=== PATIENT | male | born 1950 | race American Indian/Alaskan Native ===

== ENCOUNTER 2016-11-14 09:28 | Inpatient (IN) | payer MEDICARE ==
--- NOTE | 2016-11-14 10:03 | Emergency Department Report ---
ED ENT HPI - General Chief complaint: Dyspnea/Respdistress Stated complaint: SOB Source: patient, EMS Mode of arrival: Ambulatory Limitations: No Limitations - Related Data Home Medications Medication Instructions Recorded Confirmed Last Taken Unobtainable 11/14/16 11/14/16 Unknown Allergies Allergy/AdvReac Type Severity Reaction Status Date / Time No Known Allergies Allergy Unverified 12/02/14 11:00 ED Dental HPI - General Chief complaint: Dyspnea/Respdistress Stated complaint: SOB Source: patient, EMS Mode of arrival: Ambulatory Limitations: No Limitations - Related Data Home Medications Medication Instructions Recorded Confirmed Last Taken Unobtainable 11/14/16 11/14/16 Unknown Allergies Allergy/AdvReac Type Severity Reaction Status Date / Time No Known Allergies Allergy Unverified 12/02/14 11:00 ED Review of Systems ROS: Stated complaint: SOB Other details as noted in HPI ED Past Medical Hx - Past Medical History Previous Medical History?: Yes Hx Hypertension: Yes Additional medical history: Triple bypass at [place] - Surgical History Past Surgical History?: Yes Additional Surgical History: CABG - Social History Smoking Status: Current Every Day Smoker Substance Use Type: Alcohol, Prescribed - Medications Home Medications: Home Medications Medication Instructions Recorded Confirmed Last Taken Type Unobtainable 11/14/16 11/14/16 Unknown History ED Physical Exam - General Limitations: No Limitations ED Course Vital Signs 11/14/16 09:50 Temperature 98.1 F Pulse Rate 86 Respiratory 18 Rate Blood Pressure 151/93 O2 Sat by Pulse 95 Oximetry Critical care attestation.: If time is entered above; I have spent that time in minutes in the direct care of this critically ill patient, excluding procedure time. ED Disposition Condition: Stable
--- NOTE | 2016-11-14 10:09 | Emergency Department Report ---
Chief Complaint: Dyspnea/Respdistress Stated Complaint: SOB Time Seen by Provider: 11/14/16 10:03 - HPI History of Present Illness: Patient is a 64 y.o male with h/o CABG who presents due to SOB x 2 weeks. Patient states that he ran out of his BP medication 2 months ago. Patient denies any chest pain, diaphoresis, vomiting or arm pain. Patient also c/o fatigue - ROS Review of Systems: patient had no chest pain, no nausea, vomiting, diaphoresis of arm pain - Exam Vital Signs: Vital Signs 11/14/16 09:50 Temperature 98.1 F Pulse Rate 86 Respiratory 18 Rate Blood Pressure 151/93 O2 Sat by Pulse 95 Oximetry Physical Exam: patient was in NAD MSE screening note: Focused history and physical exam performed. Due to findings the following was ordered: sob protocols ED Disposition for MSE Condition: Stable
[2016-11-14 10:35] LABS: Basophils % (Auto) 0.5 % (0.0-1.8); Eosinophils % (Auto) 1.2 % (0.0-4.3); Hematocrit 47.6 % (35.5-45.6); Hemoglobin 15.5 gm/dl (11.8-15.2); Mean Corpuscular HGB Conc 33 % (32-34); Mean Corpuscular Hemoglobin 31 pg (28-32); Mean Corpuscular Volume 93 fl (84-94); Platelet Count 179 K/mm3 (140-440); Red Cell Distribution Width 13.2 % (13.2-15.2); White Blood Count 5.4 K/mm3 (4.5-11.0)
[2016-11-14 10:45] LABS: INR 1.11 (0.87-1.13)
[2016-11-14 10:46] LABS: Partial Thromboplastin Time 27.8 Sec. (24.2-36.6)
[2016-11-14 11:08] LABS: Creatine Kinase MB 7.4 ng/mL (0.0-4.0)
[2016-11-14 11:11] LABS: Alanine Aminotransferase 31 units/L (7-56); Albumin 3.6 g/dL (3.9-5); Alkaline Phosphatase 87 units/L (35-129); Anion Gap 17 mmol/L; BUN/Creatinine Ratio 9.09; Bilirubin,Total 0.7 mg/dL (0.1-1.2); Blood Urea Nitrogen 10 mg/dL (9-20); Calcium 8.7 mg/dL (8.4-10.2); Carbon Dioxide 27 mmol/L (22-30); Chloride 101.3 mmol/L (98-107); Glucose 107 mg/dL (75-100); Potassium 4.9 mmol/L (3.6-5.0); Sodium 140 mmol/L (137-145); Total Protein 7.1 g/dL (6.3-8.2)
[2016-11-14 11:12] LABS: Creatine Kinase 189 units/L (55-170)
--- NOTE | 2016-11-14 11:22 | XRay Report ---
CHEST X-RAY, 2 VIEWS History: Dyspnea Findings: Compared to 09/21/10. Moderate cardiomegaly, mild pulmonary venous congestion and small right pleural effusion are identified. No consolidation or pneumothorax. The thoracic tube is intact. CABG changes are noted. Impression: Mild CHF.
[2016-11-14] MEDS ORDERED: LASIX IV ONE (12:18)
--- NOTE | 2016-11-14 12:20 | Emergency Department Report ---
ED Shortness of Breath HPI - General Chief Complaint: Dyspnea/Respdistress Stated Complaint: SOB Time Seen by Provider: 11/14/16 12:09 Source: patient, EMS (ems notes not available at time of chart dictation), RN notes reviewed Mode of arrival: Ambulatory Limitations: No Limitations - History of Present Illness Initial Comments: This is a 66-year-old male, previously unknown to me. Has a past medical history of obesity, hypertension, heart disease status post bypass in 2011. 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 He presents to the ER complaining of shortness of breath. Shortness of breath is new onset over the past few days. It increases with physical exertion, and decreases with rest. He describes orthopnea and difficulty sleeping at night. He denies dietary indiscretions. He admits to medication noncompliance. There is no chest pain. There is no leg pain or leg swelling. No recent trips greater than 4 hours. No recent hospital admissions. Positive cough. No fevers. Dry mucus production. MD Complaint: shortness of breath -: Gradual Consistency: intermittent Improves With: rest Worsens With: lying flat, exertion Associated Symptoms: orhopnia Treatments Prior to Arrival: none - Related Data Home Oxygen Therapy: No Home Medications Medication Instructions Recorded Confirmed Last Taken Unobtainable 11/14/16 11/14/16 Unknown Allergies Allergy/AdvReac Type Severity Reaction Status Date / Time No Known Allergies Allergy Unverified 12/02/14 11:00 ED Review of Systems ROS: Stated complaint: SOB Other details as noted in HPI Constitutional: malaise, weakness. denies: fever ENT: denies: dental pain, epistaxis Respiratory: shortness of breath, SOB with exertion Cardiovascular: dyspnea on exertion Gastrointestinal: denies: abdominal pain, nausea, diarrhea Genitourinary: as per HPI Musculoskeletal: as per HPI Skin: denies: rash, lesions Neurological: weakness ED Past Medical Hx - Past Medical History Previous Medical History?: Yes Hx Hypertension: Yes Additional medical history: Triple bypass at [place] - Surgical History Past Surgical History?: Yes Additional Surgical History: CABG - Social History Smoking Status: Current Every Day Smoker Substance Use Type: Alcohol, Prescribed - Medications Home Medications: Home Medications Medication Instructions Recorded Confirmed Last Taken Type Unobtainable 11/14/16 11/14/16 Unknown History ED Physical Exam - General Limitations: No Limitations General appearance: alert, in no apparent distress, obese - Head Head exam: Present: atraumatic, normocephalic - Eye Eye exam: Present: normal appearance, EOMI. Absent: nystagmus - ENT ENT exam: Present: normal exam, normal orophraynx, mucous membranes moist, normal external ear exam - Neck Neck exam: Present: normal inspection, full ROM. Absent: tenderness, meningismus - Respiratory Respiratory exam: Present: respiratory distress, rales - Cardiovascular Cardiovascular Exam: Present: regular rate, normal rhythm, normal heart sounds. Absent: bradycardia, tachycardia, irregular rhythm, systolic murmur, diastolic murmur, rubs, gallop - GI/Abdominal GI/Abdominal exam: Present: soft, normal bowel sounds. Absent: distended, tenderness, guarding, rebound, rigid, pulsatile mass - Rectal Rectal exam: Present: deferred - Extremities Exam Extremities exam: Present: normal inspection, full ROM, normal capillary refill. Absent: tenderness, pedal edema, joint swelling, calf tenderness - Back Exam Back exam: Present: normal inspection, full ROM. Absent: tenderness, CVA tenderness (R), CVA tenderness (L), muscle spasm, paraspinal tenderness, vertebral tenderness - Neurological Exam Neurological exam: Present: alert, oriented X3, normal gait, other (Extraocular movements intact. Tongue midline. No facial droop. Facial sensation intact to light touch in the V1, V2, V3 distribution bilaterally. 5 and 5 strength in 4 extremities.. Sensation is intact to light touch in 4 extremities.). Absent : motor sensory deficit - Psychiatric Psychiatric exam: Present: normal affect, normal mood - Skin Skin exam: Present: warm, dry, intact, normal color. Absent: rash ED Course Vital Signs 11/14/16 11/14/16 11/14/16 09:50 13:02 13:56 Temperature 98.1 F 98.1 F Pulse Rate 86 85 86 Respiratory 18 16 Rate Blood Pressure 151/93 144/86 Blood Pressure 158/82 [Left] O2 Sat by Pulse 95 99 Oximetry - Reevaluation(s) Reevaluation #1: 11/14/16 12:49 Differential diagnosis: Congestive heart failure bronchitis, pneumonia, obesity hypoventilation syndrome, pulmonary hypertension, multifactorial shortness of breath Assessment and plan: 66-year-old male with shortness of breath, orthopnea, decreased exercise tolerance, no pulmonary embolus or DVT risk factors, low risk by well's criteria. Symptoms most clinically consistent with congestive heart failure. He is noncompliant with medications. Has mildly decompensated heart failure, the son have an outpatient primary care doctor is quite symptomatically exertion. He is not stable for outpatient management given lack of for follow-up, and profound exercise intolerance. He does not require BiPAP therapy or noninvasive ventilation at this time, he will be admitted for diuresis. Case is discussed with the Hospital physician, Dr. Felton, who graciously accepts the patient to his service. He states he will contact cardiology if necessary. ED Medical Decision Making - Lab Data Result diagrams: 11/14/16 10:09 11/14/16 10:09 Vital Signs 11/14/16 09:50 Temperature 98.1 F Pulse Rate 86 Respiratory 18 Rate Blood Pressure 151/93 O2 Sat by Pulse 95 Oximetry Lab Results 11/14/16 11/14/16 11/14/16 Range/Units 10:09 10:09 10:09 WBC 5.4 (4.5-11.0) K/mm3 RBC 5.10 H (3.65-5.03) M/mm3 Hgb 15.5 H (11.8-15.2) gm/dl Hct 47.6 H (35.5-45.6) % MCV 93 (84-94) fl MCH 31 (28-32) pg MCHC 33 (32-34) % RDW 13.2 (13.2-15.2) % Plt Count 179 (140-440) K/mm3 Lymph % (Auto) 25.1 (13.4-35.0) % Brule % (Auto) 6.5 (0.0-7.3) % Eos % (Auto) 1.2 (0.0-4.3) % Baso % (Auto) 0.5 (0.0-1.8) % Lymph # 1.3 (1.2-5.4) K/mm3 Brule # 0.4 (0.0-0.8) K/mm3 Eos # 0.1 (0.0-0.4) K/mm3 Baso # 0.0 (0.0-0.1) K/mm3 Seg Neutrophils % 66.7 (40.0-70.0) % Seg Neutrophils # 3.6 (1.8-7.7) K/mm3 PT (12.2-14.9) Sec. INR (0.87-1.13) APTT (24.2-36.6) Sec. Carbon Dioxide 27 (22-30) mmol/L BUN 10 (9-20) mg/dL Creatinine 1.1 (0.8-1.5) mg/dL Estimated GFR > 60 ml/min BUN/Creatinine Ratio 9.09 % Glucose 107 H (75-100) mg/dL Calcium 8.7 (8.4-10.2) mg/dL Total Bilirubin 0.7 (0.1-1.2) mg/dL AST 21 (5-40) units/L ALT 31 (7-56) units/L Alkaline Phosphatase 87 (35-129) units/L Total Creatine Kinase 189 H (55-170) units/L CK-MB (CK-2) 7.4 H (0.0-4.0) ng/mL CK-MB (CK-2) Rel Index 3.9 (0-4) Troponin T < 0.010 (0.00-0.029) ng/mL NT-Pro-B Natriuret Pep (0-900) pg/mL Total Protein 7.1 (6.3-8.2) g/dL Albumin 3.6 L (3.9-5) g/dL Albumin/Globulin Ratio 1.0 % 11/14/16 11/14/16 Range/Units 10:09 10:09 WBC (4.5-11.0) K/mm3 RBC (3.65-5.03) M/mm3 Hgb (11.8-15.2) gm/dl Hct (35.5-45.6) % MCV (84-94) fl MCH (28-32) pg MCHC (32-34) % RDW (13.2-15.2) % Plt Count (140-440) K/mm3 Lymph % (Auto) (13.4-35.0) % Brule % (Auto) (0.0-7.3) % Eos % (Auto) (0.0-4.3) % Baso % (Auto) (0.0-1.8) % Lymph # (1.2-5.4) K/mm3 Brule # (0.0-0.8) K/mm3 Eos # (0.0-0.4) K/mm3 Baso # (0.0-0.1) K/mm3 Seg Neutrophils % (40.0-70.0) % Seg Neutrophils # (1.8-7.7) K/mm3 PT 14.2 (12.2-14.9) Sec. INR 1.11 (0.87-1.13) APTT 27.8 (24.2-36.6) Sec. Carbon Dioxide (22-30) mmol/L BUN (9-20) mg/dL Creatinine (0.8-1.5) mg/dL Estimated GFR ml/min BUN/Creatinine Ratio % Glucose (75-100) mg/dL Calcium (8.4-10.2) mg/dL Total Bilirubin (0.1-1.2) mg/dL AST (5-40) units/L ALT (7-56) units/L Alkaline Phosphatase (35-129) units/L Total Creatine Kinase (55-170) units/L CK-MB (CK-2) (0.0-4.0) ng/mL CK-MB (CK-2) Rel Index (0-4) Troponin T (0.00-0.029) ng/mL NT-Pro-B Natriuret Pep 3883 H (0-900) pg/mL Total Protein (6.3-8.2) g/dL Albumin (3.9-5) g/dL Albumin/Globulin Ratio % - EKG Data When compared to previous EKG there are: previous EKG unavailable 11/14/16 13:05 Normal sinus, 86 bpm, borderline first-degree AV block, nonspecific interventricular conduction delay, normal axis, multiple T-wave abnormalities, Q waves noted in the inferior leads, abnormal EKG, not morphologically consistent with STEMI. - Radiology Data Radiology results: report reviewed, image reviewed xr chest: chf right sided pleural effusion s/p sternotomy Critical care attestation.: If time is entered above; I have spent that time in minutes in the direct care of this critically ill patient, excluding procedure time. ED Disposition Clinical Impression: CHF (congestive heart failure) Qualifiers: Congestive heart failure type: unspecified congestive heart failure type Congestive heart failure chronicity: acute Qualified Code(s): I50.9 - Heart failure, unspecified Disposition: OP ADMITTED IP TO THIS HOSP Is pt being admited?: Yes Does the pt Need Aspirin: Yes Condition: Good
[2016-11-14] MEDS ORDERED: D50W (25GM) IV PRN (12:46)
[2016-11-14] MEDS ORDERED: ZOFRAN IV PRN (12:46)
[2016-11-14] MEDS ORDERED: TYLENOL PO PRN (12:46)
[2016-11-14] MEDS ORDERED: DULCOLAX PR PRN (12:46)
--- NOTE | 2016-11-14 12:46 | History and Physical Report ---
History of Present Illness Date of examination: 11/14/16 Date of admission: 11/14/16 Chief complaint: Shortness of breath for 3 weeks History of present illness: Patient is 66-year-old with history of hypertension, coronary artery disease, borderline diabetes. He has been noncompliant and has not been to Physician in about 10 years, since he had CABG and is not on any medications. He presents with worsening shortness of breath for 3 weeks. Shortness of breath worse on exertion, and on lying down flat. He denies any chest pain. He is not on any medications. In Emergency department chest x-ray shows pulmonary edema consistent with CHF. He denies any previous history of congestive heart failure. He was given Lasix IV and is being admitted for further management. Past History Past Medical History: arthritis, CAD (s/p CABG), diabetes (borderline Diabetes) , hypertension Past Surgical History: CABG (about 10 yrs ago) Social history: single, smoking ( half pack cigarettes a day), alcohol abuse ( quit alcohol about 10 years ago), full code Family history: cancer Medications and Allergies Allergies Allergy/AdvReac Type Severity Reaction Status Date / Time No Known Allergies Allergy Unverified 12/02/14 11:00 Home Medications Medication Instructions Recorded Confirmed Last Taken Type Unobtainable 11/14/16 11/14/16 Unknown History Review of Systems All systems: negative (no chest pain, no headache, no nausea, no vomiting, no abdominal pain. All other systems reviewed and are negative) Exam - Physical Exam Narrative exam: Gen appearance: not in acute distress, obese HEENT: normocephalic atraumatic, Neck : supple, no JVD Lungs:bilateral basal crackles, no wheezing, Heart : S1 and S2 regular, no murmurs rubs or gallop, midline chest scar from CABG Abdomen: soft nontender, nondistended, normal bowel sounds Extremities: trace bilateral lower extremity edema, no clubbing or cyanosis, Neuro :awake alert oriented 3, no focal signs Psych :appropriate mood - Constitutional Vitals: Temp Pulse Resp BP Pulse Ox 98.1 F 86 18 151/93 95 11/14/16 09:50 11/14/16 09:50 11/14/16 09:50 11/14/16 09:50 11/14/16 09:50 Results - Labs CBC & Chem 7: 11/14/16 10:09 11/14/16 10:09 Labs: Abnormal lab results 11/14/16 11/14/16 11/14/16 Range/Units 10:09 10:09 10:09 RBC 5.10 H (3.65-5.03) M/mm3 Hgb 15.5 H (11.8-15.2) gm/dl Hct 47.6 H (35.5-45.6) % Glucose 107 H (75-100) mg/dL Total Creatine Kinase 189 H (55-170) units/L CK-MB (CK-2) 7.4 H (0.0-4.0) ng/mL NT-Pro-B Natriuret Pep (0-900) pg/mL Albumin 3.6 L (3.9-5) g/dL 11/14/16 Range/Units 10:09 RBC (3.65-5.03) M/mm3 Hgb (11.8-15.2) gm/dl Hct (35.5-45.6) % Glucose (75-100) mg/dL Total Creatine Kinase (55-170) units/L CK-MB (CK-2) (0.0-4.0) ng/mL NT-Pro-B Natriuret Pep 3883 H (0-900) pg/mL Albumin (3.9-5) g/dL Assessment and Plan Acute congestive heart failure. Admit to telemetry. Lasix IV given in emergency department. Continue Lasix 40 mg IV every 12 hours. Add beta anam Coreg 3.125 mg by mouth twice a day. Strict fluid I/O, get Echocardiogram. 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 Coronary artery disease status post CABG. Patient has been noncompliant and has not taken any medicines in over 10 years. Give aspirin daily. check lipid profile. Hypertension. Blood pressure borderline elevated 151/93. Start Coreg. Borderlinre diabetes mellitus. Patient states he was told he has borderline diabetes mellitus about 10 years ago. He is not on any medications. We'll check A1c DVT prophylaxis with heparin subcutaneous every 8 hours. Medical noncompliance. I discussed with him to be more compliant. Obesity. BMI 38.9. I discussed importance of losing weight. Full CODE STATUS
[2016-11-14] MEDS ORDERED: BABY ASPIRIN PO ONE (12:52)
--- NOTE | 2016-11-14 12:53 | Admit Criteria Form ---
Admission Criteria Documentation: HEART FAILURE Clinical Indications for Admission to Inpatient Care (Place 'X' for any and all applicable criteria): Admission is indicated by ANY ONE of the following(1)(2)(3)(4): [ ]I. Severe electrolyte abnormalities requiring inpatient care(9) [ ]II. Hemodynamic instability [X]III. Anasarca [ ]IV. Acute cardiac ischemia causing or associated with failure (Also use Angina or Myocardial Infarction as appropriate) [ ]V. Cardiac arrhythmias of immediate concern [ ]. Precipitating cause for acute decompensation (eg, pneumonia, pulmonary embolism) requires inpatient care [ ]VII. Pulmonary edema that is very severe (eg, mechanical ventilation needed, imminent or likely, need for 100% oxygen to keep oxygen saturation above 90%) [ ]VIII. Inpatient admission required rather than observation care (Also use Heart Failure: Observation Care as appropriate) because of ANY ONE of the following: [ ]a) Pulmonary edema that is severe or worsening as indicated by ALL of the following: [ ]i) New need for oxygen therapy to keep oxygen saturation above 90% (or increased FiO2 need from baseline) [ ]ii) Has not improved sufficiently with emergency department or observation care IV diuretics or other heart failure treatments[C] [ ]b) Cognitive impairment that is severe or persistent [ ]c) Increased creatinine (new on laboratory test) with reduction of more than 50% in estimated glomerular filtration rate from baseline. [ ]d) Acute renal insufficiency (progressively (ongoing) rising creatinine (known from past laboratory test) with reduction of more than 25% in estimated glomerular filtration rate from baseline) [ ]e) Acute peripheral ischemia (eg, pulseless, cool, mottled, or cyanotic extremity) [ ]f) Acute renal failure [ ]g) Supplemental O2 or respiratory treatment for >24 hr that are performable only in acute inpatient setting [ ]h) Pulmonary artery catheter monitoring [ ]i) Other condition, treatment or monitoring requiring inpatient admission [ ]IX. Contraindications and/or Inappropriate clinical situations for Observational Care in patients with Heart Failure, when ANY ONE of the following is required: [ ]a) Patient with High risk of cardiac embolism (e.g, patients with previous cardiac embolism, LVEF < 40%, age >75 and patients with prosthetic valve) 18 [ ]b) Patient with Moderate risk including DM patient, CAD and patient aged 65-75 [ ]c) Patient with any change in cardiac biomarker especially troponin should be managed as high risk in an inpatient setting 19 [ ]d) Physician judgement irrespective of ECG and other diagnostic findings 20 [ ]e) Patients with hyponatremia have high risk for mortality and require more extensive care and length of stay 21 [ ]f) Need for large volume diuresis 21 [ ]g) Presence of renal insufficiency or hypotension limiting speed of diuresis 21 [ ]h) Acute cardiac Ischemia in the elderly 21 [ ]i) Patients with a 30 day risk of mortality based on a multidimensional prognostic index (MPI) [J,]21 [ ]X. General contraindications and/or Inappropriate clinical situations for Observational Care in patients with Heart Failure, when ANY ONE of the following is required: [ ]a) Prediction of prolongation of LOS based on ANY ONE of the following may be considered as a contraindication for observational care 2, 3, 4, 5, 6, 7, 8 , 9, 10, 11 [ ]i) Age > 65 yrs. [ ]ii) Patient arriving by ambulance [ ]iii) Patient with high acuity [ ]iv) Patient requiring vital sign monitoring [ ]v) Patient on IV medication [ ]b) Systolic blood pressures 180mmHg 3,12 [ ]c) Patient with altered mental status including delirium and other alteration of consciousness, (3) [ ]d) Patient whose discharge disposition will be to a [facility] home or rehabilitation home should not be managed in Emergency Department Observation Unit. CMS rule requires 3 days hospital stay before such placement.3,13 [ ]e) Patient with failure to thrive due to broad array of etiologies 3,16,17 [ ]f) Inability to ambulate 3,14 Extended stay beyond goal length of stay may be needed for(1)(3)(21)(25): [ ]a) Cardiac ischemia, confirmed or suspected as precipitant [ ]b) Cardiogenic shock or refractory pulmonary edema [ ]c) Acute kidney injury or renal failure [ ]d) Respiratory failure (eg, need for noninvasive or invasive mechanical ventilation) (23) [ ]e) Concomitant pneumonia or significant electrolyte abnormality (eg, severe hyponatremia) [ ]f) Newly diagnosed (new onset) atrial fibrillation [ ]g) Stage IV chronic kidney disease (estimated glomerular filtration rate of less than 30 mL/min/1.73m2 (0.50 mL/sec/1.73m2), and not previously on chronic dialysis The original [facility] content created by [facility] has been revised. The portions of the content which have been revised are identified through the use of italic text or in bold, and [facility] has neither reviewed nor approved the modified material. All other unmodified content is copyright [facility]. Please see references footnoted in the original [facility] edition 2016 Admission Criteria Met: Yes
[2016-11-14] MEDS: COREG PO SCH ×2 (13:56→21:46)
[2016-11-14] MEDS: HEPARIN SUB-Q SCH ×2 (15:45→21:47)
[2016-11-14 16:02] LABS: Bilirubin,Urine NEG (Negative); Blood,Urine NEG (Negative); Ketones,Urine NEG (Negative); Leukocyte Esterase,Urine NEG (Negative); Mucus,Urine FEW /HPF; Nitrite,Urine NEG (Negative)
[2016-11-14] MEDS: LASIX IV SCH (20:23)
[2016-11-15 06:41] LABS: Basophils % (Auto) 0.5 % (0.0-1.8); Eosinophils % (Auto) 2.6 % (0.0-4.3); Hematocrit 46.5 % (35.5-45.6); Hemoglobin 15.1 gm/dl (11.8-15.2); Mean Corpuscular HGB Conc 32 % (32-34); Mean Corpuscular Hemoglobin 30 pg (28-32); Mean Corpuscular Volume 93 fl (84-94); Platelet Count 173 K/mm3 (140-440); Red Cell Distribution Width 13.3 % (13.2-15.2); White Blood Count 5.1 K/mm3 (4.5-11.0)
[2016-11-15] MEDS: HEPARIN SUB-Q SCH ×3 (06:41→21:14)
[2016-11-15] MEDS: LASIX IV SCH ×2 (06:41→17:12)
[2016-11-15 06:52] LABS: Anion Gap 15 mmol/L; BUN/Creatinine Ratio 12.72; Blood Urea Nitrogen 14 mg/dL (9-20); Calcium 8.7 mg/dL (8.4-10.2); Carbon Dioxide 26 mmol/L (22-30); Glucose 104 mg/dL (75-100); Potassium 4.2 mmol/L (3.6-5.0); Sodium 135 mmol/L (137-145)
[2016-11-15] MEDS ORDERED: ECOTRIN PO SCH (10:00)
[2016-11-15] MEDS: COREG PO SCH ×2 (11:37→21:13)
[2016-11-15] MEDS ORDERED: PNEUMOVAX 23 IM ONE (12:00)
--- NOTE | 2016-11-15 13:37 | Consultation ---
History of Present Illness Consult date: 11/15/16 Consult reason: congestive heart failure History of present illness: The patient is a 66-year-old man with an extensive cardiac history. More than 10 years ago, he underwent three-way coronary artery bypass surgery at [place]. He has continued to smoke cigarettes over the years, has not maintained regular cardiology follow-up but has had no significant interval cardiac evaluation. Comorbidities include chronic hypertension, for which he is also not compliant with medical therapy, not taking blood pressure medication for over 2 months. For several weeks now, he has complained of increasing shortness of breath and cough, he thought he had the flu and that last week was administered with the flu and Pneumovax shots. His symptoms however continued to he presented to the emergency room where a chest x-ray was consistent with interstitial edema and congestive heart failure. Cardiac consultation is requested for further cardiac evaluation. The patient denies chest pain, denies palpitations, but he has significant orthopnea and PND, and mild lower extremity edema. ECG is normal sinus rhythm, left ventricular hypertrophy and repolarization abnormalities of LVH. Initial cardiac enzymes are normal. Past History Past Medical History: arthritis, CAD (s/p CABG), diabetes (borderline Diabetes) , hypertension Past Surgical History: CABG (about 10 yrs ago) Social history: single, smoking ( half pack cigarettes a day), alcohol abuse ( quit alcohol about 10 years ago), full code Family history: cancer Medications and Allergies Allergies Allergy/AdvReac Type Severity Reaction Status Date / Time No Known Allergies Allergy Unverified 12/02/14 11:00 Home Medications Medication Instructions Recorded Confirmed Last Taken Type Aspirin [Aspirin TAB] 325 mg PO DAILY 11/15/16 11/15/16 Unknown History Active Meds: Active Medications Acetaminophen (Tylenol) 650 mg PO Q4H PRN PRN Reason: Pain MILD(1-3)/Fever >100.5/[place] Aspirin (Ecotrin) 325 mg PO QDAY [facility] Last Admin: 11/15/16 11:37 Dose: 325 mg Bisacodyl (Dulcolax) 10 mg CO QDAY PRN PRN Reason: Constipation unrelieved by MOM Carvedilol (Coreg) 3.125 mg PO BID [facility] Last Admin: 11/15/16 11:37 Dose: 3.125 mg Dextrose (D50w (25gm)) 50 ml IV PRN PRN PRN Reason: Hypoglycemia Furosemide (Lasix) 40 mg IV BID@0600,1800 [facility] Last Admin: 11/15/16 06:41 Dose: 40 mg Heparin Sodium (Porcine) (Heparin) 5,000 unit SUB-Q Q8HR [facility] Last Admin: 11/15/16 06:41 Dose: 5,000 unit Ondansetron HCl (Zofran) 4 mg IV Q6H PRN PRN Reason: nausea or vomiting Review of Systems Cardiovascular: orthopnea, edema, shortness of breath, no chest pain, no palpitations, no rapid/irregular heart beat, no syncope, no lightheadedness Physical Examination Vital Signs Temp Pulse Resp BP Pulse Ox 98.1 F 86 18 151/93 95 11/14/16 09:50 11/14/16 09:50 11/14/16 09:50 11/14/16 09:50 11/14/16 09:50 General appearance: mild distress HEENT: Positive: PERRL Neck: Positive: neck supple Cardiac: Positive: Reg Rate and Rhythm Lungs: Positive: Decreased Breath Sounds, Rhonchi Neuro: Positive: Grossly Intact Abdomen: Positive: Soft Male genitourinary: Positive: deferred Skin: Positive: Clear Extremities: Present: +1 Edema Results 11/15/16 05:59 11/15/16 05:59 CBC 11/15/16 Range/Units 05:59 WBC 5.1 (4.5-11.0) K/mm3 RBC 5.00 (3.65-5.03) M/mm3 Hgb 15.1 (11.8-15.2) gm/dl Hct 46.5 H (35.5-45.6) % Plt Count 173 (140-440) K/mm3 Lymph # 1.8 (1.2-5.4) K/mm3 [place] # 0.5 (0.0-0.8) K/mm3 Eos # 0.1 (0.0-0.4) K/mm3 Baso # 0.0 (0.0-0.1) K/mm3 Comprehensive Metabolic Panel 11/15/16 Range/Units 05:59 Sodium 135 L (137-145) mmol/L Potassium 4.2 (3.6-5.0) mmol/L Chloride 98.0 (98-107) mmol/L Carbon Dioxide 26 (22-30) mmol/L BUN 14 (9-20) mg/dL Creatinine 1.1 (0.8-1.5) mg/dL Glucose 104 H (75-100) mg/dL Calcium 8.7 (8.4-10.2) mg/dL EKG interpretations - Telemetry EKG Rhythm: Sinus Rhythm Assessment and Plan - Patient Problems (1) CHF (congestive heart failure) Current Visit: Yes Status: Acute Qualifiers: Congestive heart failure type: unspecified congestive heart failure type Congestive heart failure chronicity: acute Qualified Code(s): I50.9 - Heart failure, unspecified Plan to address problem: Patient with a history of coronary artery disease, and more than 10 year old grafts, continued tobacco abuse, presents with symptoms of decompensated heart failure. Recommendations: We will aggressively treat heart failure with diuretics, oral antiplatelet therapy, nitrates, beta blockers and antihypertensive management. A right and left heart catheterization, for further assessment of his heart failure and the progression of his coronary artery disease.
[2016-11-15] MEDS ORDERED: ZESTRIL PO SCH (14:00)
[2016-11-15] MEDS: FLUARIX QUAD 2016-2017(36 MOS+) IM ONE ×2 (14:21→14:25)
[2016-11-15] MEDS: NITRO-BID 2% TP SCH ×2 (14:21→17:12)
--- NOTE | 2016-11-15 14:49 | Echocardiography Report ---
Transthoracic Echocardiogram Indication: SOB BP: 160/80 HR: 78 Conclusions *1. Dilated cardiomyopathy, EF 15-20%. *2. Dilated LA. *3. Mild-moderate MR. Findings Procedure Info: The study quality is fair. Left Ventricle: The left ventricular size is moderate to severely dilated. Mild to moderate concentric left ventricular hypertrophy is observed. There is evidence of a dilated cardiomyopathy. Global left ventricular systolic function is severely decreased. The estimated ejection fraction is 15-20%. Post surgical hypokinesis of the interventricular septum is observed consistent with coronary artery bypass. Left Atrium: The left atrium is severely dilated. Right Ventricle: The right ventricle is slightly dilated. The right ventricular global systolic function is mildly reduced. Right Atrium: The right atrium is mildly dilated. Aortic Valve: The aortic valve is trileaflet. The aortic valve leaflets are mildly thickened. There is no evidence of aortic regurgitation. There is no evidence of aortic stenosis. Mitral Valve: The mitral valve leaflets appear myxomatous. There is mitral annular calcification. The mitral valve leaflets are mildly thickened. There is mild to moderate mitral regurgitation. There is no evidence of mitral stenosis. Tricuspid Valve: The tricuspid valve is not well visualized. There is mild tricuspid regurgitation. No pulmonary hypertension is noted. There is no tricuspid stenosis. Pulmonic Valve: The pulmonic valve is not well visualized. There is mild to moderate pulmonic regurgitation. There is no pulmonic stenosis. Pericardium: There is no pericardial effusion. No pleural effusion is present. Aorta: There is no dilatation of the aortic root. Venous: The inferior vena cava appears normal in size. There is a greater than 50% respiratory change in the inferior vena cava dimension. Measurements Chambers 2D Name Value Normal Range LVPWd 1.3 cm - LVIDd 5.53 cm - LVIDs 5.1 cm - LVIDd (2D) 5.87 cm (3.7 - 5.6) LVIDs (2D) 5.35 cm (2 - 3.8) LV FS (Teichholz) (2D) 8.86 % - LV FS (cube) (2D) 8.86 % - LV EF (2D) 20 % - EF Teichholz (2D) 19.3 % - LA dimension 4.4 cm - Ao root diameter (2D) 3.6 cm (2 - 3.7) LA dimension (AP) 2D 5 cm (1.9 - 4) LA:Ao ratio (2D) 1.39 ratio - Volumes/Mass Name Value Normal Range LA ESV SP 4CH (MOD) 51 ml - LV EDV SP 4CH (MOD) 206 ml - LV ESV SP 4CH (MOD) 139 ml - EF SP 4CH (MOD) 33 % - Diastolic/Systolic Function Name Value Normal Range MV E-wave Vmax 1.1 m/sec - MV deceleration time 174 msec - MV A-wave Vmax 0.5 m/sec - MV E:A ratio 2.2 ratio - LV septal e' Vmax 0.04 m/sec - LV lateral e' Vmax 0.04 m/sec - LV E:e' septal ratio 25.1 ratio - LV E:e' lateral ratio 27.5 ratio - Aortic Valve Name Value Normal Range AV VTI 14.6 cm - AV mean gradient 2 mmHg - LVOT diameter 2.3 cm - LVOT VTI 13.2 cm - LVOT mean gradient 1 mmHg - SV LVOT 55 ml - MYLA (continuity VTI) 3.75 cm2 - Mitral Valve Name Value Normal Range MV Vmax 0.77 m/sec - MV VTI 13.3 cm - MV peak gradient 2 mmHg - MV mean gradient 1 mmHg - MVA (continuity VTI) 4.12 cm2 - Tricuspid Valve Name Value Normal Range TR Vmax 1.81 m/sec - TR peak gradient 13 mmHg - Pulmonic Valve/Qp:Qs Name Value Normal Range PV Vmax 0.62 m/sec - PV peak gradient 2 mmHg - MN end-diastolic Vmax 1.63 m/sec - PV acceleration time 140 msec -
--- NOTE | 2016-11-15 15:42 | Progress Note ---
Assessment and Plan Assessment and plan: Acute congestive heart failure. Continue Lasix 40 mg IV every 12 hours, Coreg po. Echo cardiogram shows EF 15-20%. He was evaluated by cardiology. For cardiac cath in the morning. Coronary artery disease status post CABG. Patient has been noncompliant and has not taken any medicines in over 10 years. Give aspirin daily. check lipid profile. Hypertension. Blood pressure improved, most recent 136/70. Borderlinre diabetes mellitus. Patient states he was told he has borderline diabetes mellitus about 10 years ago. He is not on any medications. A1C 6.5. DVT prophylaxis with heparin subcutaneous every 8 hours. Medical noncompliance. I discussed with him to be more compliant. Obesity. BMI 38.9. I discussed importance of losing weight. Full CODE STATUS History Interval history: feels better, Less shortness of breath, No chest pain Leg edema still present Hospitalist Physical - Physical exam Narrative exam: Gen appearance: not in acute distress, obese HEENT: normocephalic atraumatic, Neck : supple, no JVD Lungs:bilateral basal crackles, no wheezing, Heart : S1 and S2 regular, no murmurs rubs or gallop, midline chest scar from CABG Abdomen: soft nontender, nondistended, normal bowel sounds Extremities: trace bilateral lower extremity edema, no clubbing or cyanosis, Neuro :awake alert oriented 3, no focal signs Psych :appropriate mood - Constitutional Vitals: Temp Pulse Resp BP Pulse Ox 98.4 F 84 20 136/70 96 11/15/16 13:18 11/15/16 13:18 11/15/16 13:18 11/15/16 13:18 11/15/16 13:18 General appearance: Present: mild distress Results - Labs CBC & Chem 7: 11/15/16 05:59 11/15/16 05:59 Labs: Laboratory Last Values WBC 5.1 K/mm3 (4.5-11.0) 11/15/16 05:59 RBC 5.00 M/mm3 (3.65-5.03) 11/15/16 05:59 Hgb 15.1 gm/dl (11.8-15.2) 11/15/16 05:59 Hct 46.5 % (35.5-45.6) H 11/15/16 05:59 MCV 93 fl (84-94) 11/15/16 05:59 MCH 30 pg (28-32) 11/15/16 05:59 MCHC 32 % (32-34) 11/15/16 05:59 RDW 13.3 % (13.2-15.2) 11/15/16 05:59 Plt Count 173 K/mm3 (140-440) 11/15/16 05:59 Lymph % (Auto) 34.2 % (13.4-35.0) 11/15/16 05:59 [place] % (Auto) 9.1 % (0.0-7.3) H 11/15/16 05:59 Eos % (Auto) 2.6 % (0.0-4.3) 11/15/16 05:59 Baso % (Auto) 0.5 % (0.0-1.8) 11/15/16 05:59 Lymph # 1.8 K/mm3 (1.2-5.4) 11/15/16 05:59 [place] # 0.5 K/mm3 (0.0-0.8) 11/15/16 05:59 Eos # 0.1 K/mm3 (0.0-0.4) 11/15/16 05:59 Baso # 0.0 K/mm3 (0.0-0.1) 11/15/16 05:59 Seg Neutrophils % 53.6 % (40.0-70.0) 11/15/16 05:59 Seg Neutrophils # 2.7 K/mm3 (1.8-7.7) 11/15/16 05:59 PT 14.2 Sec. (12.2-14.9) 11/14/16 10:09 INR 1.11 (0.87-1.13) 11/14/16 10:09 APTT 27.8 Sec. (24.2-36.6) 11/14/16 10:09 Sodium 135 mmol/L (137-145) L 11/15/16 05:59 Potassium 4.2 mmol/L (3.6-5.0) 11/15/16 05:59 Chloride 98.0 mmol/L (98-107) 11/15/16 05:59 Carbon Dioxide 26 mmol/L (22-30) 11/15/16 05:59 Anion Gap 15 mmol/L 11/15/16 05:59 BUN 14 mg/dL (9-20) 11/15/16 05:59 Creatinine 1.1 mg/dL (0.8-1.5) 11/15/16 05:59 Estimated GFR > 60 ml/min 11/15/16 05:59 BUN/Creatinine Ratio 12.72 % 11/15/16 05:59 Glucose 104 mg/dL (75-100) H 11/15/16 05:59 POC Glucose 97 (70-105) 11/15/16 12:13 Hemoglobin A1c 6.5 % (4-6) H 11/14/16 10:09 Calcium 8.7 mg/dL (8.4-10.2) 11/15/16 05:59 Total Bilirubin 0.7 mg/dL (0.1-1.2) 11/14/16 10:09 AST 21 units/L (5-40) 11/14/16 10:09 ALT 31 units/L (7-56) 11/14/16 10:09 Alkaline Phosphatase 87 units/L (35-129) 11/14/16 10:09 Total Creatine Kinase 189 units/L (55-170) H 11/14/16 10:09 CK-MB (CK-2) 7.4 ng/mL (0.0-4.0) H 11/14/16 10:09 CK-MB (CK-2) Rel Index 3.9 (0-4) 11/14/16 10:09 Troponin T < 0.010 ng/mL (0.00-0.029) 11/14/16 13:23 NT-Pro-B Natriuret Pep 3883 pg/mL (0-900) H 11/14/16 10:09 Total Protein 7.1 g/dL (6.3-8.2) 11/14/16 10:09 Albumin 3.6 g/dL (3.9-5) L 11/14/16 10:09 Albumin/Globulin Ratio 1.0 % 11/14/16 10:09 Urine Color Yellow (Yellow) 11/14/16 14:30 Urine Turbidity Clear (Clear) 11/14/16 14:30 Urine pH 7.0 (5.0-7.0) 11/14/16 14:30 Ur Specific [place] 1.010 (1.003-1.030) 11/14/16 14:30 Urine Protein 30 mg/dl mg/dL (Negative) 11/14/16 14:30 Urine Glucose (UA) Neg mg/dL (Negative) 11/14/16 14:30 Urine Ketones Neg mg/dL (Negative) 11/14/16 14:30 Urine Blood Neg (Negative) 11/14/16 14:30 Urine Nitrite Neg (Negative) 11/14/16 14:30 Urine Bilirubin Neg (Negative) 11/14/16 14:30 Urine Urobilinogen 2.0 mg/dL (<2.0) 11/14/16 14:30 Ur Leukocyte Esterase Neg (Negative) 11/14/16 14:30 Urine WBC (Auto) 2.0 /HPF (0.0-6.0) 11/14/16 14:30 Urine RBC (Auto) 4.0 /HPF (0.0-6.0) 11/14/16 14:30 Urine Mucus Few /HPF 11/14/16 14:30
[2016-11-15] MEDS: ZOCOR PO SCH (21:13)
[2016-11-16] MEDS ORDERED: ASPIRIN PO ONE (06:00)
[2016-11-16] MEDS ORDERED: ZESTRIL PO ONE (06:00)
[2016-11-16] MEDS ORDERED: COREG PO ONE (06:00)
[2016-11-16] MEDS ORDERED: HEPARIN/NS 5000 UNIT/500ML(CATH LAB) 1,000 ML IR ONE (10:02)
[2016-11-16] MEDS ORDERED: VERSED ONE ×2 (10:03→10:10)
[2016-11-16] MEDS ORDERED: SUBLIMAZE ONE ×2 (10:03→10:10)
[2016-11-16] MEDS ORDERED: XYLOCAINE 2% INFILTRATI ONE (10:03)
[2016-11-16] MEDS ORDERED: NACL 0.9% 500 ML 500 ML ONE (10:03)
[2016-11-16] MEDS ORDERED: NITROGLYCERIN SYRINGE 0 ML ONE (10:10)
[2016-11-16] MEDS: LASIX IV SCH ×2 (13:20→17:15)
[2016-11-16] MEDS: HEPARIN SUB-Q SCH ×2 (13:20→21:28)
[2016-11-16] MEDS: NITRO-BID 2% TP SCH ×2 (13:21→17:15)
--- NOTE | 2016-11-16 13:40 | Cardiac Catherization Report ---
LEFT AND RIGHT HEART CATHETERIZATION INDICATION: Congestive heart failure, cardiomyopathy. ORDERING PHYSICIAN: Jing Deal MD PROCEDURES PERFORMED: 1. Selective left and right coronary angiography. 2. Left ventriculography. 3. Selective angiography of the saphenous vein graft to the obtuse marginal, selective angiography of the saphenous vein graft to the right coronary artery, and selective angiography of the HUERTA graft to the LAD. 4. Right heart catheterization with hemodynamic measurement and oxygen saturation run. DESCRIPTION OF PROCEDURE: After obtaining written consent, the patient was draped using sterile technique. A 2% lidocaine was injected into the right groin. A 5-Tanzanian vascular sheath was inserted into the right superficial femoral artery using micropuncture technique. An 8-[place]anz[place] vascular sheath was inserted into the right superficial femoral vein using a micropuncture technique. A 5-Tanz[place] JL4 catheter was used to selectively engage the left coronary artery. A 5-[place] JR4 catheter was used to selectively engage the right coronary artery. A 5-[place]anz[place] JR4 catheter was used to selectively engage the saphenous vein graft to the obtuse marginal, saphenous vein graft to the right coronary artery, and HUERTA graft to the LAD. A 5-[place]anzanian pigtail catheter was used to perform the left ventriculogram. A 7-Tanzanian Derby-Dorothy catheter was used to measure right-sided pressures and perform oxygen saturation run. No complications occurred during the procedure. Hemostasis was achieved at the end of the procedure using manual pressure. ESTIMATED BLOOD LOSS: Minimal. SPECIMEN REMOVED: None FINDINGS: Hemodynamics: 1. The aortic pressure is 157/93, LV systolic pressure is 159 mmHg. Left ventricular end-diastolic pressure was measured at 34 mmHg. There was no significant gradient noted across the left ventricular outflow tract. 2. The mean right arterial pressure is 14 mmHg. 3. The right ventricular systolic pressure is 52 mmHg with a right ventricular end-diastolic pressure of 17 mmHg. 4. The mean pulmonary artery pressure was 37 mmHg with the pulmonary artery systolic pressure of 56 and the diastolic pressure of 21 mmHg. The transpulmonary gradient was measured at 6 mmHg. 5. The mean pulmonary capillary wedge pressure was 31 mmHg. The pulmonary artery saturation was 62%, right ventricular saturation was 61%, right atrial saturation was 64%, superior vena cava saturation was 63%, and aortic saturation was 92%. CARDIAC STRUCTURES: The left ventricular cavity is dilated with severe global left ventricular hypokinesis and left ventricular ejection fraction estimated at 15%. CORONARY ANATOMY: 1. There is a 99% distal occlusion of the left main. 2. There is 100% occlusion of the proximal LAD. 3. There is 100% occlusion of the proximal right coronary artery. 4. The right coronary artery could not be engaged and is believed to be 100% occluded at the ostium. 5. The saphenous vein graft to the distal right coronary artery is patent with good distal vessel run-off. 6. The saphenous vein graft to the obtuse marginal is patent with good distal vessel run-off. 7. The HUERTA graft to the LAD is patent with good distal vessel run-off. IMPRESSION: 1. 100% occlusion of the [place] coronary arteries. 2. Patent saphenous vein graft to obtuse marginal, patent saphenous vein graft to the right coronary artery, and patent HUERTA graft to the LAD. 3. Severe global left ventricular hypokinesis with an ejection fraction estimated at 15%. 4. Elevated left and right-sided filling pressures with evidence of moderate pulmonary venous hypertension. 5. No evidence of an intracardiac shunt. RECOMMENDATIONS: Continue medical therapy with diuresis and afterload reduction. JOB# [id number] GISEL/DREA
--- NOTE | 2016-11-16 14:24 | Progress Note ---
Assessment and Plan Acute systolic heart failure EF 15% on echo this admission Hx of CAD with remote CABG Hypertension Noncompliant with medications R /LHC findings: 1. Patent SVG to obtuse marginal 2. Patent SVG to right coronary artery 3. Patent HUERTA graft to LAD 4. Ejection fraction 15% 5. Elevated right and left filling pressures with evidence of moderate pulmonary HTN. Recommend: Continued medical therapy with afterload reduction and diuretics for systolic heart failure. Subjective Date of service: 11/16/16 Interval history: Right and left cardiac cath done today. Objective Vital Signs Temp Pulse Pulse Pulse Resp BP BP 11/15/16 23:56 98.2 F 82 18 118/64 11/15/16 22:00 80 11/15/16 21:13 78 134/77 11/15/16 20:21 11/15/16 19:56 97.5 F L 81 20 134/77 11/15/16 15:58 98.3 F 84 22 BP Pulse Ox 11/15/16 23:56 100 11/15/16 22:00 11/15/16 21:13 11/15/16 20:21 94 11/15/16 19:56 97 11/15/16 15:58 125/66 - Physical Examination HEENT: Positive: PERRL Neck: Positive: neck supple Neuro: Positive: Grossly Intact Abdomen: Positive: Soft Skin: Positive: Clear Extremities: Present: +1 Edema
[2016-11-16 14:50] LABS: BUN/Creatinine Ratio 13.07; Blood Urea Nitrogen 17 mg/dL (9-20); Calcium 8.9 mg/dL (8.4-10.2); Carbon Dioxide 30 mmol/L (22-30); Chloride 99.4 mmol/L (98-107); Glucose 100 mg/dL (75-100); INR 1.06 (0.87-1.13); Potassium 4.3 mmol/L (3.6-5.0); Sodium 139 mmol/L (137-145)
[2016-11-16 15:30] LABS: Anion Gap 14 mmol/L
--- NOTE | 2016-11-16 18:18 | Progress Note ---
Assessment and Plan Assessment and plan: Acute congestive heart failure. Continue Lasix 40 mg IV every 12 hours, Coreg po. Echo cardiogram shows EF 15-20%. Cardiology following . Cardiac cath shows patent grafts. Continue Medical management as recommended by cardiology. Likely discharge home tomorrow. Coronary artery disease status post CABG. Patient has been noncompliant and has not taken any medicines in over 10 years. Hypertension. Blood pressure improved, most recent 128/75. Borderlinre diabetes mellitus. Patient states he was told he has borderline diabetes mellitus about 10 years ago. He is not on any medications. A1C 6.5. DVT prophylaxis with heparin subcutaneous every 8 hours. Medical noncompliance. I discussed with him to be more compliant. Obesity. BMI 38.9. I discussed importance of losing weight. Full CODE STATUS History Interval history: feels better, Less shortness of breath, No chest pain less leg edema cardiac cath today Hospitalist Physical - Physical exam Narrative exam: Gen appearance: not in acute distress, obese HEENT: normocephalic atraumatic, Neck : supple, no JVD Lungs:bilateral basal crackles, no wheezing, Heart : S1 and S2 regular, no murmurs rubs or gallop, midline chest scar from CABG Abdomen: soft nontender, nondistended, normal bowel sounds Extremities: trace bilateral lower extremity edema, no clubbing or cyanosis, Neuro :awake alert oriented 3, no focal signs Psych :appropriate mood - Constitutional Vitals: Temp Pulse Resp BP Pulse Ox 98.2 F 82 18 118/64 100 11/15/16 23:56 11/15/16 23:56 11/15/16 23:56 11/15/16 23:56 11/15/16 23:56 General appearance: Present: mild distress Results - Labs CBC & Chem 7: 11/15/16 05:59 11/16/16 04:00 Labs: Laboratory Last Values WBC 5.1 K/mm3 (4.5-11.0) 11/15/16 05:59 RBC 5.00 M/mm3 (3.65-5.03) 11/15/16 05:59 Hgb 15.1 gm/dl (11.8-15.2) 11/15/16 05:59 Hct 46.5 % (35.5-45.6) H 11/15/16 05:59 MCV 93 fl (84-94) 11/15/16 05:59 MCH 30 pg (28-32) 11/15/16 05:59 MCHC 32 % (32-34) 11/15/16 05:59 RDW 13.3 % (13.2-15.2) 11/15/16 05:59 Plt Count 173 K/mm3 (140-440) 11/15/16 05:59 Lymph % (Auto) 34.2 % (13.4-35.0) 11/15/16 05:59 [place] % (Auto) 9.1 % (0.0-7.3) H 11/15/16 05:59 Eos % (Auto) 2.6 % (0.0-4.3) 11/15/16 05:59 Baso % (Auto) 0.5 % (0.0-1.8) 11/15/16 05:59 Lymph # 1.8 K/mm3 (1.2-5.4) 11/15/16 05:59 [place] # 0.5 K/mm3 (0.0-0.8) 11/15/16 05:59 Eos # 0.1 K/mm3 (0.0-0.4) 11/15/16 05:59 Baso # 0.0 K/mm3 (0.0-0.1) 11/15/16 05:59 Seg Neutrophils % 53.6 % (40.0-70.0) 11/15/16 05:59 Seg Neutrophils # 2.7 K/mm3 (1.8-7.7) 11/15/16 05:59 PT 13.7 Sec. (12.2-14.9) 11/16/16 04:00 INR 1.06 (0.87-1.13) 11/16/16 04:00 APTT 27.8 Sec. (24.2-36.6) 11/14/16 10:09 Sodium 139 mmol/L (137-145) 11/16/16 04:00 Potassium 4.3 mmol/L (3.6-5.0) 11/16/16 04:00 Chloride 99.4 mmol/L (98-107) 11/16/16 04:00 Carbon Dioxide 30 mmol/L (22-30) 11/16/16 04:00 Anion Gap 14 mmol/L 11/16/16 04:00 BUN 17 mg/dL (9-20) 11/16/16 04:00 Creatinine 1.3 mg/dL (0.8-1.5) 11/16/16 04:00 Estimated GFR > 60 ml/min 11/16/16 04:00 BUN/Creatinine Ratio 13.07 % 11/16/16 04:00 Glucose 100 mg/dL (75-100) 11/16/16 04:00 POC Glucose 113 (70-105) H 11/16/16 12:38 Hemoglobin A1c 6.5 % (4-6) H 11/14/16 10:09 Calcium 8.9 mg/dL (8.4-10.2) 11/16/16 04:00 Total Bilirubin 0.7 mg/dL (0.1-1.2) 11/14/16 10:09 AST 21 units/L (5-40) 11/14/16 10:09 ALT 31 units/L (7-56) 11/14/16 10:09 Alkaline Phosphatase 87 units/L (35-129) 11/14/16 10:09 Total Creatine Kinase 189 units/L (55-170) H 11/14/16 10:09 CK-MB (CK-2) 7.4 ng/mL (0.0-4.0) H 11/14/16 10:09 CK-MB (CK-2) Rel Index 3.9 (0-4) 11/14/16 10:09 Troponin T < 0.010 ng/mL (0.00-0.029) 11/14/16 13:23 NT-Pro-B Natriuret Pep 3883 pg/mL (0-900) H 11/14/16 10:09 Total Protein 7.1 g/dL (6.3-8.2) 11/14/16 10:09 Albumin 3.6 g/dL (3.9-5) L 11/14/16 10:09 Albumin/Globulin Ratio 1.0 % 11/14/16 10:09 Urine Color Yellow (Yellow) 11/14/16 14:30 Urine Turbidity Clear (Clear) 11/14/16 14:30 Urine pH 7.0 (5.0-7.0) 11/14/16 14:30 Ur Specific [place] 1.010 (1.003-1.030) 11/14/16 14:30 Urine Protein 30 mg/dl mg/dL (Negative) 11/14/16 14:30 Urine Glucose (UA) Neg mg/dL (Negative) 11/14/16 14:30 Urine Ketones Neg mg/dL (Negative) 11/14/16 14:30 Urine Blood Neg (Negative) 11/14/16 14:30 Urine Nitrite Neg (Negative) 11/14/16 14:30 Urine Bilirubin Neg (Negative) 11/14/16 14:30 Urine Urobilinogen 2.0 mg/dL (<2.0) 11/14/16 14:30 Ur Leukocyte Esterase Neg (Negative) 11/14/16 14:30 Urine WBC (Auto) 2.0 /HPF (0.0-6.0) 11/14/16 14:30 Urine RBC (Auto) 4.0 /HPF (0.0-6.0) 11/14/16 14:30 Urine Mucus Few /HPF 11/14/16 14:30
[2016-11-16] MEDS: COREG PO SCH (21:27)
[2016-11-16] MEDS: ZOCOR PO SCH (21:28)
[2016-11-17] MEDS: LASIX IV SCH (05:43)
[2016-11-17] MEDS: HEPARIN SUB-Q SCH (05:43)
[2016-11-17] MEDS: NITRO-BID 2% TP SCH ×2 (05:48→09:29)
[2016-11-17 09:26] VITALS: BP 143/87
[2016-11-17] MEDS: COREG PO SCH (09:29)
--- NOTE | 2016-11-17 09:44 | Discharge Summary ---
Providers - Providers Date of Admission: 11/14/16 12:46 Date of discharge: 11/17/16 Attending physician: JUDIE LI Primary care physician: COMPUTER AIDED DESIGN TECHNICIAN Hospitalization Condition: Good Disposition: DISCHARGED TO HOME OR SELFCARE - Discharge Diagnoses (1) Acute systolic CHF (congestive heart failure) Status: Acute (2) CAD (coronary artery disease) Status: Acute Qualifiers: Coronary Disease-Associated Artery/Lesion type: C [place] vs. transplanted heart: N Associated angina: A (3) Diabetes mellitus type 2 in obese Status: Chronic Core Measure Documentation - Palliative Care Palliative Care/ Comfort Measures: Not Applicable - Core Measures Any of the following diagnoses?: heart failure - Heart Failure Discharge Requirements ANGELA/ARB for LVSD if EF <40%: Yes Beta anam at discharge: Yes Exam - Constitutional Vitals: Temp Pulse Resp BP Pulse Ox 98.4 F 93 H 18 117/62 97 11/17/16 04:00 11/17/16 04:00 11/17/16 04:00 11/17/16 04:00 11/17/16 04:00 Plan Activity: advance as tolerated Diet: low fat, low cholesterol, low salt, diabetic Additional Instructions: 1.Follow up with PCP in 3-5 days. 2.Follow up with Dr. Deal in 1 week Follow up with: PRIMARY CARE,MD [Primary Care Provider] - 3-5 Days Prescriptions: Aspirin EC [Aspirin Enteric Coated TAB] 325 mg PO QDAY #30 tablet Carvedilol [Coreg] 3.125 mg PO BID #60 tablet Lisinopril [Zestril TAB] 10 mg PO QDAY #30 tablet Simvastatin [Zocor TAB] 40 mg PO QHS #30 tablet
[2016-11-17] MEDS ORDERED: ECOTRIN PO SCH (10:00)
[2016-11-17] MEDS ORDERED: ZESTRIL PO SCH (10:00)
--- NOTE | 2016-11-17 11:49 | Progress Note ---
Assessment and Plan Acute systolic heart failure EF 15% on echo this admission Hx of CAD with remote CABG Hypertension Noncompliant with medications R /LHC findings: 1. Patent SVG to obtuse marginal 2. Patent SVG to right coronary artery 3. Patent HUERTA graft to LAD 4. Ejection fraction 15% 5. Elevated right and left filling pressures with evidence of moderate pulmonary HTN. Recommend: Continued medical therapy with afterload reduction and diuretics for systolic heart failure. Stable, cardiac roberts, for discharge home today. F/U with Dr Deal as scheduled Nov.21. Subjective Date of service: 11/17/16 Interval history: Patient reports he is feeling better. He denies shortness of breath. For planned discharge home today. Objective Vital Signs Temp Pulse Pulse Pulse Resp BP BP 11/17/16 08:00 97.4 F L 77 20 143/87 11/17/16 04:00 98.4 F 93 H 18 117/62 11/17/16 03:15 80 11/17/16 00:00 98.1 F 90 18 149/67 11/16/16 20:04 11/16/16 20:00 98.1 F 87 18 137/69 11/16/16 16:30 97.9 F 86 20 117/70 11/16/16 14:55 75 128/75 11/16/16 14:25 78 113/69 11/16/16 13:55 84 125/80 Pulse Ox 11/17/16 08:00 92 11/17/16 04:00 97 11/17/16 03:15 11/17/16 00:00 97 11/16/16 20:04 94 11/16/16 20:00 98 11/16/16 16:30 97 11/16/16 14:55 11/16/16 14:25 11/16/16 13:55 - Physical Examination General: No Apparent Distress HEENT: Positive: PERRL Neck: Positive: neck supple Cardiac: Positive: Reg Rate and Rhythm Lungs: Positive: Decreased Breath Sounds Neuro: Positive: Grossly Intact Extremities: Present: +1 Edema - Labs and Meds Coagulation 11/16/16 Range/Units 04:00 PT 13.7 (12.2-14.9) Sec. INR 1.06 (0.87-1.13) Comprehensive Metabolic Panel 11/16/16 Range/Units 04:00 Sodium 139 (137-145) mmol/L Potassium 4.3 (3.6-5.0) mmol/L Chloride 99.4 (98-107) mmol/L Carbon Dioxide 30 (22-30) mmol/L BUN 17 (9-20) mg/dL Creatinine 1.3 (0.8-1.5) mg/dL Glucose 100 (75-100) mg/dL Calcium 8.9 (8.4-10.2) mg/dL
== END 2016-11-17 11:03 | disposition home or self-care (01) | DRG 286 ==
LOC: ED 09:28 → 4A 12:46
PROVIDERS: ADMIT Internal Medicine; ATTEND Internal Medicine
PROC: 4A023N8 Measurement of Cardiac Sampling and Pressure, Bilateral, Percutaneous Approach (ICD-10-PCS; principal; 2016-11-16)
PROC: B2111ZZ Fluoroscopy of Multiple Coronary Arteries using Low Osmolar Contrast (ICD-10-PCS; 2016-11-16)
PROC: B2151ZZ Fluoroscopy of Left Heart using Low Osmolar Contrast (ICD-10-PCS; 2016-11-16)
DX: I42.0 Dilated cardiomyopathy (principal); I50.21 Acute systolic (congestive) heart failure; I25.10 Atherosclerotic heart disease of native coronary artery without angina pectoris; I11.0 Hypertensive heart disease with heart failure; E11.9 Type 2 diabetes mellitus without complications; E66.9 Obesity, unspecified; M19.90 Unspecified osteoarthritis, unspecified site; F17.210 Nicotine dependence, cigarettes, uncomplicated; I25.82 Chronic total occlusion of coronary artery; Z80.9 Family history of malignant neoplasm, unspecified; Z68.38 Body mass index [BMI] 38.0-38.9, adult; Z91.19 Patient's noncompliance with other medical treatment and regimen; Z95.1 Presence of aortocoronary bypass graft
CPT/HCPCS: 36415; 71020; 80048; 80053; 81001; 82550; 82553; 82962; 83036; 83880; 84484; 85025; 85610; 85730; 90686; 90732; 93005; 93010; 93306; 93461; 96374; 99406; C1769; J1644; J1940; J2250; J3010; J7040; Q9967

== ENCOUNTER 2017-06-24 16:48 | Emergency (ER) | payer MEDICARE ==
[2017-06-24 16:59] VITALS: BP 139/81
[2017-06-24] MEDS ORDERED: MOTRIN PO ONE ×2 (19:12→19:18)
== END 2017-06-24 22:28 | disposition left against medical advice (07) ==
LOC: ED 16:48
DX: M25.571 Pain in right ankle and joints of right foot (principal); Z53.21 Procedure and treatment not carried out due to patient leaving prior to being seen by health care provider